=== PATIENT | female | born 1960 | race African-American/Black ===

== ENCOUNTER 2016-09-10 15:17 | Emergency (ER) | payer BC ==
[2016-09-10 15:23] VITALS: BP 124/89; PULSE 80; TEMP 98; BMI 22.8
--- NOTE | 2016-09-10 15:45 | PDOC ---
History of Present Illness - General Chief Complaint: Foreign Body (FB) Stated Complaint: ACCIDENTAL CONSUMPTION Time Seen by Provider: 09/10/16 15:42 History Source: Patient Exam Limitations: No Limitations - History of Present Illness Initial Comments: CHIEF COMPLAINT: 55 y/o afebrile female with no significant PMH c/o possible ingestion of eucalyptus and tree oil. HISTORY OF PRESENT ILLNESS: The patient states she thought she was taking her Vitamin D and thinks she got about 10 drops in her mouth when she realized it was a natural oil substance containing eucalyptus oil, tea tree oil, cajeput, niaouli, and ravensara. She does not think she swallowed anything. She thinks she spit everything out and then washed her mouth out with water. She is denying all complaints. She denies suicidal ideation. Vital signs on arrival are within normal limits. REVIEW OF SYSTEMS: GENERAL/CONSTITUTIONAL: No fever/chills. No weakness. No weight change. HEAD, EYES, EARS, NOSE AND THROAT: No change in vision. No ear pain or discharge. No sore throat. CARDIOVASCULAR: No chest pain or shortness of breath. RESPIRATORY: No cough, wheezing, or hemoptysis. GASTROINTESTINAL: No abd pain, nausea, vomiting, diarrhea. GENITOURINARY: No dysuria, frequency, or change in urination. MUSCULOSKELETAL: No joint or muscle swelling or pain. No neck or back pain. SKIN: No rash or easy bruising. NEUROLOGIC: No headache, vertigo, loss of consciousness, or loss of sensation. PHYSICAL EXAM: GENERAL: The patient is awake, alert, and fully oriented, in no acute distress. She is well appearing, ambulatory, in NAD or obvious discomfort. HEAD: Normal with no signs of trauma. ENT: Pupils equal, round and reactive to light, extraocular movements intact, sclera anicteric, conjunctiva clear. Neck supple. LUNGS: Clear to auscultation bilaterally. Normal excursion. No respiratory distress or use of accessory muscles. CV: RRR, S1/S2, no MRG. Cap refill < 2 sec. ABDOMEN: Soft, non-distended, non-tender even to deep palpation, no hepatomegaly or splenomegaly, no masses. EXTREMITIES: Normal range of motion, no edema. NEUROLOGICAL: Normal speech, normal gait. CN II-XII grossly intact. PSYCH: Normal mood, normal affect. SKIN: Warm, dry, normal turgor, no rashes or lesions noted. Past History - Past Medical History Allergies/Adverse Reactions: Allergies Allergy/AdvReac Type Severity Reaction Status Date / Time acetaminophen [From Percocet] Allergy Verified 09/10/16 15:23 oxycodone HCl [From Percocet] Allergy Verified 09/10/16 15:23 Home Medications: Ambulatory Orders NK [No Known Home Medication] 12/06/14 Cardiac Disorders: Yes (chest pain, mild cardiac event(costochondritis)) - Psycho/Social/Smoking Cessation Hx Suicidal Ideation: No Smoking History: Never smoked Have you smoked in the past 12 months: No Number of Cigarettes Smoked Daily: 5 If you are a former smoker, when did you quit?: 30 years ago Information on smoking cessation initiated: No Hx Alcohol Use: No Drug/Substance Use Hx: No Substance Use Type: None Hx Substance Use Treatment: No *Physical Exam - Vital Signs Last Vital Signs Temp Pulse Resp BP Pulse Ox 98 F 80 18 124/89 100 09/10/16 15:21 09/10/16 15:21 09/10/16 15:21 09/10/16 15:21 09/10/16 15:21 Medical Decision Making - Medical Decision Making A/P: 55 y/o female with possible accidental ingestion of natural oils. Physical exam unremarkable. Spoke with Marialuisa at [facility]. He states if the patient has no symptoms she can be discharged. Suggested I inform her to watch out for symptoms of [employer] depression and GI related issues. If she experiences any of these she should return to the ER. Discussed the plan with the patient. Will discharge to home. Instructed her to return if she develops any concerning symptoms, especially drowsiness, seizures, changes in vision, and GI symptoms. The patient verbalizes understanding of all instructions, has no further questions and is awaiting discharge. *DC/Admit/Observation/Transfer Diagnosis at time of Disposition: Accidental ingestion of substance Qualifiers: Encounter type: initial encounter Qualified Code(s): T65.91XA - Toxic effect of unspecified substance, accidental (unintentional), initial encounter - Discharge Dispostion Disposition: HOME Condition at time of disposition: Good - Patient Instructions Printed Discharge Instructions: DI for Accidental Ingestion -- Adult Additional Instructions: Discharge Instructions: -Please return to the ER immediately if you experience any concerning symptoms, specifically, seizures, drowsiness, NG, changes in vision, nausea, vomiting, diarrhea, stomach upset.
== END 2016-09-10 16:07 | disposition home or self-care (01) ==
LOC: JERFT 15:17
DX: T65.891A Toxic effect of other specified substances, accidental (unintentional), initial encounter (principal); Y92.038 Other place in apartment as the place of occurrence of the external cause
CPT/HCPCS: 99281-25

== ENCOUNTER 2022-01-28 21:19 | Emergency (ER) | payer BC, OTHER ==
[2022-01-28 21:27] VITALS: BP 142/82; PULSE 69; RESP 20; TEMP 97.5; BMI 19.2
[2022-01-28 23:37] LABS: BASO % 0.5 % (0-2.0); EOS % 3.9 % (0-4.5); HEMATOCRIT 44.1 % (32.4-45.2); HEMOGLOBIN 14.6 GM/dL (10.7-15.3); LYMPH % 34.5 % (8-40); MCH 30.4 pg (25.7-33.7); MCHC 33.1 g/dl (32.0-36.0); MEAN CELL VOLUME 91.9 fl (80-96); MEAN PLT VOLUME 10.7 fl (7.5-11.1); MONO % 7.2 % (3.8-10.2); NEUT % 53.9 % (42.8-82.8); PLATELET COUNT 180 10^3/uL (134-434); RDW 13.7 % (11.6-15.6); WHITE BLOOD COUNT 7.5 K/mm3 (4.0-10.0)
[2022-01-28 23:42] LABS: CALCIUM 9.3 mg/dL (8.5-10.1)
[2022-01-28 23:43] LABS: BLOOD UREA NITROGEN 6.2 mg/dL (7-18)
[2022-01-28 23:46] LABS: CREATININE 0.7 mg/dL (0.55-1.3)
[2022-01-28 23:47] LABS: TOT PROT 7.3 g/dl (6.4-8.2)
[2022-01-28 23:48] LABS: BILIRUBIN,TOTAL 0.5 mg/dL (0.2-1)
== END 2022-01-29 00:46 | disposition home or self-care (01) ==
LOC: JER 21:19
DX: R06.02 Shortness of breath (principal)
CPT/HCPCS: 0241U-QW; 36415; 80053; 84484; 85025; 93005; 93010; 99284-25